=== PATIENT | male | born 1995 | race Hispanic/Latino ===

== ENCOUNTER 2017-12-23 17:34 | Emergency (ER) | payer OTHER ==
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
== END 2017-12-23 19:00 | disposition home or self-care (01) ==
LOC: SCSER 17:34
DX: S06.0X0A Concussion without loss of consciousness, initial encounter (principal); S60.512A Abrasion of left hand, initial encounter; M25.512 Pain in left shoulder; M25.572 Pain in left ankle and joints of left foot; V43.52XA Car driver injured in collision with other type car in traffic accident, initial encounter
CPT/HCPCS: 70450; 72100

== ENCOUNTER 2022-06-27 08:56 | Outpatient (CLI) | payer BC | END 2022-06-27 08:57 | disposition home or self-care (01) | LOC: SCSRAD 08:56 | PROVIDERS: ATTEND Family Medicine | DX: S93.401A Sprain of unspecified ligament of right ankle, initial encounter (principal) ==

== ENCOUNTER 2023-08-30 21:33 | Inpatient (IN) | payer BC ==
[2023-08-30 23:56] VITALS: BMI 28.6
[2023-08-31] MEDS ORDERED: Ondansetron PF 4 MG/2 ML Vial IVP PRN (00:14)
[2023-08-31] MEDS: Lactated Ringer's 1,000 ML IV SCH (01:35)
[2023-08-31 03:18] LABS: Influenza A by NAA Not Detected (NotDetected); Influenza B by NAA Not Detected (NotDetected); RSV by NAA Not Detected (NotDetected); SARS-CoV-2 NAA Rapid Test DETECTED (NotDetected)
[2023-08-31] MEDS: Acetaminophen 325 MG TAB PO SCH (06:30)
[2023-08-31 07:44] LABS: Anion Gap 14 mmol/L (10-20); BUN (Urea Nitrogen) 12 mg/dL (8.9-20.6); Calc. Creatinine Clearance 147 mL/min (70-130); Calcium 9.1 mg/dL (7.8-10.44); Carbon Dioxide 25 mmol/L (22-29); Chloride 106 mmol/L (98-107); Estimated GFR 115; Glucose 90 mg/dL (70-105); Sodium 141 mmol/L (136-145)
[2023-08-31 08:01] LABS: HIV (1/2) Antibody/Antigen NONREACTIVE (NonReactive); HIV 1/2 INDEX 0.05 S/CO (<1.00)
[2023-08-31 08:05] LABS: Hematocrit 43.8 % (42.0-52.0); Hemoglobin 15.3 g/dL (14.0-18.0); Mean Corpuscular HGB CONC 34.9 g/dL (32.0-36.0); Mean Corpuscular Hemoglobin 31.5 pg (27.0-31.0); Mean Corpuscular Volume 90.3 fL (78.0-98.0); Mean Platelet Volume 9.6 fL (7.4-10.4); Platelet Count 227 10x3/uL (130-400); RBC Distribution Width 11.8 % (11.5-14.5); Red Blood Cell (RBC) Count 4.85 mill/uL (4.70-6.10)
[2023-08-31 08:32] LABS: Eosinophils 1 % (0-10); Lymphocytes 40 % (21-51); Monocytes 12 % (0-10); Neutrophil 48 % (42-75); Platelet Adequacy Comment Platelets Normal; Polychromasia SLIGHT = 2-3 cells HPF (0-2); Smudge Cells 3.9 %
[2023-08-31 09:47] VITALS: BMI 28.6
[2023-08-31 12:30] LABS: INR-International Normal Ratio 1.1; PTT 30.5 sec (22.9-36.1); Prothrombin Time 14.4 sec (12.0-14.7)
[2023-08-31 12:50] VITALS: BP 131/67
[2023-08-31] MEDS: OCTAGAM 10% (10 GM/100 ML VIAL) IVPB SCH (13:39)
[2023-08-31] MEDS ORDERED: Albuterol 1.25 MG (3 mL) NEB NEB PRN (13:53)
[2023-08-31 14:10] LABS: HBCM Index 0.08 S/CO (0-0.79); HBsAg Index 0.35 S/CO (0-0.99); Hep A IgM AB NONREACTIVE (NonReactive); Hep A IgM S/CO 0.21 S/CO (0-0.79); Hep B Surf Ag NONREACTIVE S/CO (NonReactive); Hep C IgG Ab NONREACTIVE S/CO (NonReactive); Hepatitis B Core IgM Abs NONREACTIVE S/CO (NonReactive)
[2023-08-31] MEDS: Cyclobenzaprine 10 MG TAB PO SCH (14:11)
[2023-08-31] MEDS ORDERED: Iopamidol-370 76% 500 ML MDV (1 ML CHARGE) ONE (15:25)
[2023-08-31] MEDS: ADMIXTURE FEE IVPB SCH ×2 (19:55→20:26)
[2023-08-31] MEDS: PRIVIGEN IVPB SCH ×2 (19:55→20:26)
[2023-09-01] MEDS: Aspirin Chewable 81 MG TAB PO SCH (08:57)
[2023-09-01] MEDS ORDERED: Bacteriostatic Normal Saline 30 ML VIAL ONE (09:52)
[2023-09-01] MEDS ORDERED: Sodium Bicarbonate 2.5 MEQ/5 ML SDV ONE (09:56)
[2023-09-01 11:23] LABS: Syphilis Antibody Nonreactive (Nonreactive); Syphilis Antibody Index 0.04 S/CO (<1.00 Non-Reactive)
[2023-09-01 13:22] LABS: CSF Source CSF; CSF, Protein 43.8 mg/dL (15-40); Clarity Clear (Clear); Tube # 4
[2023-09-01 13:59] LABS: ANA Symphony (Qualitative) Negative (Negative); ANA Symphony (Quantitative) 0.2 Ratio (< 0.7 Negative)
[2023-09-01] MEDS ORDERED: Magnevist 469MG/ML 20 ML VIAL ONE (15:33)
[2023-09-02 20:13] VITALS: TEMP 98.2
[2023-09-02 21:37] LABS: HIV-1 Quantitative, RNA PCR <20 copies/mL (.)
[2023-09-04 14:54] LABS: Campy jejuni + coli by PCR Negative (Negative); STEC Shiga Toxin 1+2 Negative (Negative); Salmonella spp. by PCR Negative (Negative); Shigella spp + EIEC by PCR Negative (Negative)
[2023-09-04 15:13] LABS: West Nile Virus IgG Ab - CSF Negative (Negative); West Nile Virus IgM Ab - CSF Negative (Negative)
[2023-09-05 12:14] LABS: HSV 1 - DNA, CSF Negative (Negative); HSV 2 - DNA, CSF Negative (Negative)
== END 2023-09-02 21:10 | disposition short-term general hospital (02) | DRG 73 ==
LOC: 2SE 23:14 → OBSVTOIN 08-31 13:23 → IMCU/EMU 08-31 15:51
PROVIDERS: ADMIT Hospitalist; ATTEND Internal Medicine
PROC: 009U3ZX Drainage of Spinal Canal, Percutaneous Approach, Diagnostic (ICD-10-PCS; principal; 2023-09-01)
PROC: B01B1ZZ Fluoroscopy of Spinal Cord using Low Osmolar Contrast (ICD-10-PCS; 2023-09-01)
DX: G70.9 Myoneural disorder, unspecified (principal); U07.1 COVID-19; R13.10 Dysphagia, unspecified; R29.818 Other symptoms and signs involving the nervous system
CPT/HCPCS: 0241U; 36415; 62270; 70450; 70491; 70496; 70498; 70553; 71045; 76377; 80048; 80053; 80074; 80306; 80307; 81001; 82140; 82550; 82945; 83519; 83690; 83735; 83880; 84145; 84157; 84443; 85025; 85610; 85730; 86038; 86140; 86225; 86780; 86788; 86789; 87040; 87086; 87389; 87505; 87529; 87536; 87633; 87798; 89051; 93005; A9579; J1459; J7120; Q9967